=== PATIENT | female | born 1990 | race Caucasian/White ===

== ENCOUNTER 2019-02-26 20:54 | Emergency (ER) | payer MEDICAID ==
[~2019-02-26] VITALS: Ht 165.1 cm; Wt 66.2 kg
[2019-02-26 20:56] VITALS: Ht 165.1 cm; Wt 66.2 kg
[2019-02-26] MEDS ORDERED: IBUPROFEN 600 MG TAB PO ONE (21:30)
[2019-02-27] MEDS ORDERED: SOD CHLORIDE 0.9% 100 ML ONE (00:07)
[2019-02-27] MEDS ORDERED: IODIXANOL LOCM 100 ML BTL ONE (00:07)
[2019-02-27] MEDS ORDERED: NAPR-985 PO (00:48)
[2019-02-27 01:07] VITALS: BP 118/78; PULSE 72; RESP 16
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
== END 2019-02-27 01:08 | disposition home or self-care (01) ==
LOC: FTE 20:54
DX: S32.028A Other fracture of second lumbar vertebra, initial encounter for closed fracture (principal); F17.210 Nicotine dependence, cigarettes, uncomplicated; S20.211A Contusion of right front wall of thorax, initial encounter; R10.2 Pelvic and perineal pain; Y04.2XXA Assault by strike against or bumped into by another person, initial encounter
CPT/HCPCS: 71100; 74177; 76775; 80053; 81003; 81025; 85025; Q9967; Z7610